=== PATIENT | female | born 1960 | race Caucasian/White ===

== ENCOUNTER 2016-08-11 17:28 | Emergency (ER) | payer OTHER ==
[~2016-08-11] VITALS: Ht 172.1 cm; Wt 69.0 kg
[~2016-08-11 17:28] MED LIST: B-COTAB18 PO; BIOT1CAP8 PO; CHOL100010 PO; ETHY1TAB6 PO; FLUO0.05 TOP; FLUORIDE TOOTHPASTE PO; GING550C PO; GLUCTAB32 PO; HYDR0.5T PO; IMD/2 PO; IRON PO; LEVO50TA6 PO; MULT-506 PO; OMEGCAP2 PO; PRT40 PO; RSTOPS OPB; SAW160TA PO; SPIR50TA2 PO; TURM1CAP4 PO; [UNRECOGNIZED DRUG - CODE] TOP
[2016-08-11 17:41] VITALS: TEMP 36.8; Ht 172.1 cm; Wt 69.0 kg
[2016-08-11] MEDS ORDERED: PROMETHAZINE HCL INJ 12.5 MG in SODIUM CHLORIDE 0.9% 50ML 50 ML IV STA (19:37)
[2016-08-11] MEDS ORDERED: SODIUM CHLORIDE 0.9% 1000ML 1,000 ML IV STA (19:37)
[2016-08-11 20:06] LABS: BASO % 0.1 %; BASO ABS # 0.02 K/uL (0-0.2); COMPLETE YES; EOS % 0.1 %; HEMATOCRIT 47.9 % (37-47); IG% 0.4 %; LYMPH % 3.6 %; LYMPH ABS # 0.49 K/uL (1.2-3.4); MEAN CORPUSCULAR HEMOGLOBIN 32.3 pg (25-34); MEAN CORPUSCULAR HGB CONC 36.3 g/dl (32-36); MEAN PLATELET VOLUME 10.6 fL (7.4-10.4); MONO % 6.4 %; NEUT % 89.4 %; PLATELET COUNT 371 K/uL (130-400); RED BLOOD COUNT 5.38 M/uL (4.2-5.4); WHITE BLOOD COUNT 13.64 K/uL (4.8-10.8)
[2016-08-11 20:29] LABS: BUN/CREATININE RATIO 15.4 (10-20); CALCIUM 8.9 mg/dl (8.5-10.1); CREATININE 1.1 mg/dl (0.60-1.20); POTASSIUM 3.4 mmol/L (3.5-5.1)
[2016-08-11 20:32] LABS: ALB/GLOB RATIO 0.9 (0.9-2)
[2016-08-11] MEDS ORDERED: PANTOprazole INJ 40 MG in SYRINGE 0 ML IV ONE (21:00)
[2016-08-11 21:07] LABS: URINE APPEARANCE CLOUDY (CLEAR); URINE COLOR DK YELLOW; URINE EPITHELIAL CELL AUTO >30 /lpf (0-5); URINE NITRITE NEG (NEG); URINE SPECIFIC GRAVITY 1.029 (1.000-1.030); UROBILINOGEN NEG (NEG); ZZUR CULT IF INDIC CLEAN CATCH YES
[2016-08-11 21:09] LABS: MANUAL MICROSCOPIC REQUIRED? NO; REVIEW REQ? YES
[2016-08-11 21:11] LABS: URINE BILIRUBIN NEG (NEG)
[2016-08-11 21:22] LABS: URINE PATH CASTS 0-3 GRANULAR CASTS /lpf (0)
[2016-08-11] MEDS ORDERED: PHENERGAN 25MG HOMEPACK PO ONE (22:15)
[2016-08-11] MEDS ORDERED: PROM12.57 PO (22:19)
--- NOTE | 2016-08-11 22:21 | EMERGENCY ROOM VISIT NOTE ---
History First contact with patient: 19:28 Chief Complaint: VOMITING Stated Complaint: VOMITING,DIARRHEA FOR 24 HOURS Nursing Triage Summary: vomting, diarrhea, abd cramps since last night around 2100 History of Present Illness The patient is a 56 year old female who presents to the Emergency Room with complaints of nausea, vomiting and diarrhea for the past one day. The patient reports that she has had 6 episodes of vomiting over the past one day. She has had multiple episodes of diarrhea. She states that she is unable to keep anything down. The patient states that she has a history of IBS and initially thought that this was causing her symptoms. However, she states this is much more severe than previous episodes of IBS. She reports some abdominal cramping. She denies any recent antibiotic use. She rates her overall discomfort a 7/10. She denies any fevers/chills, chest pain, shortness of breath, blood in her stools or urinary symptoms. Review of Systems A complete 10-point Review of Systems was discussed with the patient, with pertinent positives and negatives listed in the History of Present Illness. All remaining Review of Systems questions can be considered negative unless otherwise specified. Social History Smoking Status: Never Smoker Current/Historical Medications Scheduled B-Complex Vitamins (Vitamin B Complex), 1 TAB PO QPM Biotin (Biotin), 1 CAP PO QPM Cholecalciferol (Vitamin D), 3,000 INTER.UNIT PO QPM Cyclosporine (Restasis Eye Drops), 1 DROP OPB BID Ethynodiol Diacet & Eth Estrad (Zovia ), 1 TAB PO QPM Fluocinonide 0.05% (Lidex 0.05%), 1 APPLN TOP 2XWK Laura (Zingiber Officinalis) (Laura Root), 1 CAP PO WM Ubphqovpmxj-Grildcxbjra-Uo Cho (Glucosamine Chondroitin &), 1 TAB PO TID Hydroxychloroquine Sulfate (Plaquenil), 300 MG PO QPM Levothyroxine Sodium (Levothyroxine Sodium), 50 MCG PO QAM Loperamide Hcl (Imodium), 2 MG PO QAM Multivitamin (Multivitamin), 1 TAB PO QAM [place]-3 Fatty Acids (Fish Oil), 1,000 MG PO WM Pantoprazole (Pantoprazole Sodium), 40 MG PO QPM [place] ([place] Repens) (Saw [place]), 1 TAB PO BID Spironolactone (Aldactone), 3 TAB PO QPM Turmeric (Curcuma Longa) (Turmeric), 1 CAP PO WM [Flouride Toothpaste], 1 DOSE PO BID [Iron], 45 MG PO 2XWK Scheduled PRN Promethazine (Phenergan ), 1-2 TABS PO Q6 PRN for Nausea or Vomiting Miscellaneous Medications Minoxidil (Topical) (Minoxidil), TOP Allergies Coded Allergies: Cyclobenzaprine (Verified Allergy, Severe, OTHER, 11/21/15) CARDIAC ARRYTHMIA H2 Antagonists (Verified Allergy, Severe, OTHER, 11/21/15) CARDIAC ARRYTHMIA Metoprolol (Verified Allergy, Intermediate, SHORTNESS OF BREATH, 11/21/15) Amoxicillin (Verified Allergy, Mild, RASH, 11/21/15) Penicillins (Verified Allergy, Mild, -, 11/21/15) Sulfa Drugs (Verified Allergy, Mild, -, 11/21/15) Uncoded Allergies: SULFA (Allergy, Severe, RASH, 01/02/14) Physical Exam Vital Signs Date Time Temp Pulse Resp B/P Pulse Ox O2 Delivery O2 Flow Rate FiO2 08/11/16 23:10 107 18 102/65 100 08/11/16 23:00 107 18 102/65 100 Room Air 08/11/16 21:40 104 18 125/87 100 Room Air 08/11/16 20:03 109 18 146/92 100 Room Air 08/11/16 17:41 36.8 69 18 141/94 94 Room Air Physical Exam VITALS: Vitals are noted on the nurse's note and reviewed by myself. Vital signs stable. GENERAL: This is a 48-year-old female, in no acute distress, nondiaphoretic, well-developed well-nourished. SKIN: Capillary reflex less than 2 seconds. HEENT: Normocephalic. PERRLA. EOMI. Nares patent. Mucous membranes moist. Neck is supple without nuchal rigidity. HEART: Regular rate and rhythm without murmurs gallops or rubs. LUNGS: Clear to auscultation bilaterally without wheezes, rales or rhonchi. No retractions or accessory muscle use. ABDOMEN: Hyperactive bowel sounds in all 4 quadrants. The abdomen is soft without tenderness. NEURO: Patient was alert and oriented to person place and time. Medical Decision & Procedures Laboratory Results 08/11/16 19:50 Red Blood Count 5.38, Mean Corpuscular Volume 89.0, Mean Corpuscular Hemoglobin 32.3, Mean Corpuscular Hemoglobin Concent 36.3, Mean Platelet Volume 10.6, Neutrophils (%) (Auto) 89.4, Lymphocytes (%) (Auto) 3.6, Monocytes (%) (Auto) 6.4, Eosinophils (%) (Auto) 0.1, Basophils (%) (Auto) 0.1, Neutrophils # (Auto) 12.19, Lymphocytes # (Auto) 0.49, Monocytes # (Auto) 0.87, Eosinophils # (Auto) 0.01, Basophils # (Auto) 0.02 08/11/16 19:50 Test 08/11/16 19:50 08/11/16 20:50 White Blood Count 13.64 K/uL (4.8-10.8) Red Blood Count 5.38 M/uL (4.2-5.4) Hemoglobin 17.4 g/dL (12.0-16.0) Hematocrit 47.9 % (37-47) Mean Corpuscular Volume 89.0 fL (80-100) Mean Corpuscular Hemoglobin 32.3 pg (25-34) Mean Corpuscular Hemoglobin Concent 36.3 g/dl (32-36) Platelet Count 371 K/uL (130-400) Mean Platelet Volume 10.6 fL (7.4-10.4) Neutrophils (%) (Auto) 89.4 % Lymphocytes (%) (Auto) 3.6 % Monocytes (%) (Auto) 6.4 % Eosinophils (%) (Auto) 0.1 % Basophils (%) (Auto) 0.1 % Neutrophils # (Auto) 12.19 K/uL (1.4-6.5) Lymphocytes # (Auto) 0.49 K/uL (1.2-3.4) Monocytes # (Auto) 0.87 K/uL (0.11-0.59) Eosinophils # (Auto) 0.01 K/uL (0-0.5) Basophils # (Auto) 0.02 K/uL (0-0.2) RDW Standard Deviation 43.4 fL (36.4-46.3) RDW Coefficient of Variation 13.3 % (11.5-14.5) Immature Granulocyte % (Auto) 0.4 % Immature Granulocyte # (Auto) 0.06 K/uL (0.00-0.02) Anion Gap 13.0 mmol/L (3-11) Est Creatinine Clear Calc Drug Dose 55.7 ml/min Estimated GFR () 64.1 Estimated GFR (Non- 55.3 BUN/Creatinine Ratio 15.4 (10-20) Calcium Level 8.9 mg/dl (8.5-10.1) Total Bilirubin 0.4 mg/dl (0.2-1) Aspartate Amino Transf (AST/SGOT) 21 U/L (15-37) Alanine Aminotransferase (ALT/SGPT) 29 U/L (12-78) Alkaline Phosphatase 54 U/L (45-117) Total Protein 8.0 gm/dl (6.4-8.2) Albumin 3.7 gm/dl (3.4-5.0) Globulin 4.3 gm/dl (2.5-4.0) Albumin/Globulin Ratio 0.9 (0.9-2) Lipase 83 U/L (73-393) Urine Color DK YELLOW Urine Appearance CLOUDY (CLEAR) Urine pH 5.0 (4.5-7.5) Urine Specific Hugo 1.029 (1.000-1.030) Urine Protein 1+ (NEG) Urine Glucose (UA) NEG (NEG) Urine Ketones TRACE (NEG) Urine Occult Blood NEG (NEG) Urine Nitrite NEG (NEG) Urine Bilirubin NEG (NEG) Urine Urobilinogen NEG (NEG) Urine Leukocyte Esterase TRACE (NEG) Urine WBC (Auto) >30 /hpf (0-5) Urine RBC (Auto) 0-4 /hpf (0-4) Urine Hyaline Casts (Auto) >30 /lpf (0-5) Urine Epithelial Cells (Auto) >30 /lpf (0-5) Urine Bacteria (Auto) NEG (NEG) Urine Pathogenic Casts 0-3 GRANULAR CASTS /lpf (0) Medications Administered Medications (Trade) Dose Ordered Sig/Jono Route Start Time Stop Time Status Last Admin Dose Admin Sodium Chloride 1,000 ml @ 999 mls/hr Q1H1M STAT IV 08/11/16 19:37 08/11/16 20:37 DC 08/11/16 20:00 999 MLS/HR Promethazine HCl 12.5 mg/Sodium Chloride 50.5 ml @ 204 mls/hr NOW STAT IV 08/11/16 19:37 08/11/16 19:51 DC 08/11/16 20:00 204 MLS/HR Pantoprazole Sodium/Syringe (Protonix Inj/ Syringe) 10 ml @ 5 mls/min NOW ONCE IV 08/11/16 21:00 08/11/16 21:01 DC 08/11/16 21:36 5 MLS/MIN Promethazine HCl (Phenergan 25MG Home Pack) 1 homepack UD ONCE PO 08/11/16 22:15 08/11/16 22:16 DC 08/11/16 23:00 1 HOMEPACK Medical Decision Differential diagnosis includes gastroenteritis, colitis, cholecystitis, appendicitis, IBS, IBD, among others. The patient was evaluated as above. Labs were drawn and IV access was obtained. Imaging studies were performed and read by radiology as above. The patient was medicated with a total of 2 L normal saline solution and 12.5 mg Phenergan IV. She was then given a bolus of Protonix. The patient was reassessed multiple times during their stay in the emergency department and remained in stable condition. The patient is a 56-year-old female who presents today complaining of nausea, vomiting and diarrhea. She did complain of some abdominal cramping, but there is no significant tenderness on examination. Labs revealed a leukocytosis consistent with vomiting or mild illness. No concerning electrolyte abnormalities. Urinalysis was not suggestive of infection. The patient was hydrated and given IV Phenergan. She did have some relief, but complained of reflux symptoms and was given IV Protonix. She was reevaluated and was able to tolerate some fluids. She'll be given a home pack and prescription of Phenergan. She will follow-up with her primary care provider or will return for any worsening or concerning symptoms. Based on the patient's presentation, lab results, and imaging studies, I feel the patient is stable for outpatient treatment. The patient's case was reviewed with Dr. Rivers, ED attending physician, who agreed with my assessment and treatment plan. Discharge instructions were reviewed with the patient. The patient verbalized understanding of my assessment and treatment plan and was discharged home in good condition. Impression Primary Impression: Nausea, vomiting, and diarrhea Departure Information Dispostion Home / Self-Care Condition GOOD Prescriptions Promethazine (Phenergan ) 12.5 Mg Tab 1-2 TABS PO Q6 Y for Nausea or Vomiting, #15 TAB Prov: Nakia Jewell PA-C 08/11/16 Referrals Carlos Caceres D.O. (PCP) Patient Instructions My [facility] Additional Instructions You have been treated in the Emergency Department for your vomiting and diarrhea. You have been prescribed Phenergan to be used for any nausea or vomiting. Take as prescribed. For pain control, you can use the following [id number] medicines (if >12 yo): - Regular strength (325mg/tab) Tylenol (acetaminophen) 2 tabs every 4-6 hours as needed. Do not exceed 12 tablets in a 24 hour period. Avoid taking more than 4 grams (4000 mg) of Tylenol per day. This includes any other sources of acetaminophen you may take on a regular basis. - Regular strength (200 mg/tab) Advil (ibuprofen) 1-2 tabs every 4-6 hours as needed. Do not exceed a dose of 3200 mg per day. Drink plenty of water and stay well hydrated. As with any trip to the Emergency Department, you should follow-up with your Primary Care Provider from today's visit. Return to the emergency department if your symptoms persist despite treatment plan outlined above or if the following symptoms occur: increased fevers, chills , worsening nausea/vomiting, blood in your stool or urine.
[2016-08-11 23:10] VITALS: BP 102/65; PULSE 107; O2SAT 100
== END 2016-08-11 23:10 | disposition home or self-care (01) ==
LOC: C.EDB 17:29 → C.EDC 23:10
DX: R11.2 Nausea with vomiting, unspecified (principal); R19.7 Diarrhea, unspecified; Z79.899 Other long term (current) drug therapy; Z88.0 Allergy status to penicillin; Z88.2 Allergy status to sulfonamides; Z88.8 Allergy status to other drugs, medicaments and biological substances

== ENCOUNTER → 2017-04-02 | Outpatient (CLI) | payer OTHER | END | disposition home or self-care (01) | LOC: C.PAPS 16:53 | PROVIDERS: ATTEND Obstetrics & Gynecology | DX: Z12.4 Encounter for screening for malignant neoplasm of cervix (principal) ==

== ENCOUNTER → 2017-05-05 | Outpatient (CLI) | payer OTHER ==
--- NOTE | 2017-05-06 07:57 | MAMMOGRAPHY REPORT ---
BILATERAL DIGITAL SCREENING MAMMOGRAM TOMOSYNTHESIS WITH CAD: 05/05/2017 CLINICAL HISTORY: Routine screening. Patient has no complaints. TECHNIQUE: Breast tomosynthesis in addition to standard 2D mammography was performed. Current study was also evaluated with a Computer Aided Detection (CAD) system. COMPARISON: Comparison is made to exams dated: 04/03/2016 mammogram, 02/26/2015 mammogram, 02/23/2014 m ammogram, 02/14/2013 mammogram, 03/02/2012 aspiration, and 02/20/2012 mammogram - [facility] enter. BREAST COMPOSITION: There are scattered areas of fibroglandular density in both breasts. FINDINGS: There is stable asymmetries in the lateral right breast. No suspicious spiculated or irreg ular mass, architectural distortion or cluster of suspicious microcalcifications is seen. IMPRESSION: ACR BI-RADS CATEGORY 1: NEGATIVE There is no mammographic evidence of malignancy. A 1 year screening mammogram is recommended. The pa tient will receive written notification of the results. Approximately 10% of breast cancers are not detected with mammography. A negative mammographic report should not delay biopsy if a clinically suggestive mass is present. Libby Goodrich M.D. ay/:05/05/2017 15:51:11 Numerical Control Operator: Kimmy MAURICIO(R)([place]), [facility] letter sent: Normal 1/2 BI-RADS Code: ACR BI-RADS Category 1: Negative
== END | disposition home or self-care (01) ==
LOC: C.MAMM 12:24
PROVIDERS: ATTEND Obstetrics & Gynecology
DX: Z12.31 Encounter for screening mammogram for malignant neoplasm of breast (principal)

== ENCOUNTER → 2017-05-29 | Outpatient (CLI) | payer OTHER ==
--- NOTE | 2017-05-29 09:41 | DIAGNOSTIC IMAGING REPORT ---
R FOOT MIN 3 VIEWS, L FOOT MIN 3 VIEWS CLINICAL HISTORY: 57 years-old Female presenting with B/L FOOT PAIN. TECHNIQUE: Frontal, oblique, and lateral views of the right and left feet were obtained. COMPARISON: None. FINDINGS: Right foot: No acute fracture or malalignment. Prominent bone spur at the inferior calcaneus. No other advanced degenerative change. No radiographic soft tissue abnormality. Left foot: No acute fracture or malalignment. Slightly less prominent bone spur at the inferior calcaneus. No other advanced degenerative change. No radiographic soft tissue abnormality. IMPRESSION: 1. No acute osseous injury of the right or left feet. 2. Bilateral enthesophytes at the origin of the plantar fascia, right greater than left. Electronically signed by: Nilton Aguilar M.D. 05/29/2017 9:40 AM Dictated Date/Time: 05/29/2017 9:38 AM
== END | disposition home or self-care (01) ==
LOC: C.RDSM 12:09
PROVIDERS: ATTEND Internal Medicine
DX: M79.671 Pain in right foot (principal); M79.672 Pain in left foot; M77.31 Calcaneal spur, right foot; M77.32 Calcaneal spur, left foot

== ENCOUNTER 2017-09-11 07:11 | Emergency (ER) | payer OTHER ==
[~2017-09-11] VITALS: Ht 170.2 cm; Wt 72.5 kg
[2017-09-11 07:12] VITALS: TEMP 36.8; Ht 170.2 cm; Wt 72.5 kg
[2017-09-11] MEDS ORDERED: SODIUM CHLORIDE 0.9% 1000ML 1,000 ML IV STA (07:35)
[2017-09-11 07:59] LABS: PTT PATIENT 25.4 SECONDS (21.0-31.0)
[2017-09-11 08:04] LABS: ALBUMIN 3.7 gm/dl (3.4-5.0); ALT/SGPT 34 U/L (12-78); BLOOD UREA NITROGEN 14 mg/dl (7-18); CALCIUM 9.5 mg/dl (8.5-10.1); CARBON DIOXIDE 27 mmol/L (21-32); CREATININE 0.96 mg/dl (0.60-1.20); GLUCOSE 95 mg/dl (70-99); POTASSIUM 3.7 mmol/L (3.5-5.1); SODIUM 138 mmol/L (136-145)
[2017-09-11] MEDS ORDERED: PRT/20 PO (08:07)
[2017-09-11] MEDS ORDERED: LDXCR30 TOP (08:07)
[2017-09-11] MEDS ORDERED: CHOL1TAB12 PO (08:07)
[2017-09-11] MEDS ORDERED: HYDR200T5 PO (08:07)
[2017-09-11] MEDS ORDERED: CYCL0.052 OP (08:07)
[2017-09-11 08:14] VITALS: O2SAT 96
[2017-09-11 08:15] LABS: ALKALINE PHOSPHATASE 51 U/L (45-117); AST/SGOT 22 U/L (15-37); CKMB 0.7 ng/ml (0.5-3.6); TOTAL PROTEIN 7.5 gm/dl (6.4-8.2)
[2017-09-11 08:19] LABS: BASO % 0.4 %; BASO ABS # 0.04 K/uL (0-0.2); HEMATOCRIT 43.1 % (37-47); HEMOGLOBIN 15.1 g/dL (12.0-16.0); IG# 0.05 K/uL (0.00-0.02); LYMPH % 31.9 %; LYMPH ABS # 3.26 K/uL (1.2-3.4); MEAN CELL VOLUME 89.8 fL (80-100); MEAN CORPUSCULAR HEMOGLOBIN 31.5 pg (25-34); MEAN PLATELET VOLUME 10.6 fL (7.4-10.4); MONO % 10.6 %; MONO ABS # 1.08 K/uL (0.11-0.59); NEUT % 54.6 %; NEUT ABS # 5.58 K/uL (1.4-6.5); PLATELET COUNT 353 K/uL (130-400); RED CELL DISTRIBUTION WIDTH CV 12.6 % (11.5-14.5); RED CELL DISTRIBUTION WIDTH SD 41.5 fL (36.4-46.3); WHITE BLOOD COUNT 10.21 K/uL (4.8-10.8)
--- NOTE | 2017-09-11 08:25 | DIAGNOSTIC IMAGING REPORT ---
CHEST ONE VIEW PORTABLE CLINICAL HISTORY: EVALUATE WEAKNESS mental status change COMPARISON STUDY: 08/18/2012 FINDINGS: The bones soft tissues and hemidiaphragms are normal. The cardiomediastinal silhouette is normal. The lungs are clear. The pulmonary vasculature is normal. IMPRESSION: Negative chest. The above report was generated using voice recognition software. It may contain grammatical, syntax or spelling errors. Electronically signed by: Jerry Moran M.D. 09/11/2017 8:23 AM Dictated Date/Time: 09/11/2017 8:23 AM
--- NOTE | 2017-09-11 08:57 | EMERGENCY ROOM VISIT NOTE ---
History Report prepared by Kristel: Brittany Parnell Under the Supervision of: Dr. Juan Manuel Garrett M.D. First contact with patient: 07:32 Chief Complaint: IRREGULAR HEARTBEAT Stated Complaint: IRREGULAR HEART BEAT Nursing Triage Summary: Pt felt like popcorn was popping in her chest. Has a history of bigeminy. Denies CP. [place] like she couldnt catch her breath. History of Present Illness The patient is a 57 year old female who presents to the Emergency Room with complaints of intermittent irregular heartbeat starting a couple weeks ago. This occurs mostly at night when she is trying to sleep. She had the irregular heartbeat from 0948-1299 today. This episode was much worse than her previous episodes. She describes the rhythm as popcorn popping in her chest. She has felt lightheaded at times. The patient has a history of PVC and bigeminy. Her heartbeat last night felt different from her previous rhythm problems. She currently feels that she is having PVCs which is normal for her. Pt denies LOC, headache, fevers, chills, diaphoresis, visual changes, neck pain, chest pain, breathing difficulties, nausea, vomiting, abdominal pain, back pain, melena, hematochezia, urinary symptoms, numbness, weakness, lymphadenopathy, rash, or other complaints. Source of History: patient Onset: couple weeks ago Position: other (global) Quality: other (irregular heartbeat) Timing: intermittent Note: Pt reports lightheadedness. Review of Systems See HPI for pertinent positives and negatives. A total of ten systems were reviewed and were otherwise negative. Past Medical & Surgical Medical Problems: (1) GERD (gastroesophageal reflux disease) (2) IBS (irritable bowel syndrome) Family History Diabetes mellitus Heart disease Hypertension Lung disease Social History Smoking Status: Never Smoker Marital Status: Current/Historical Medications Scheduled B-Complex Vitamins (Vitamin B Complex), 1 TAB PO QPM Biotin (Biotin), 1 CAP PO QPM Cholecalciferol (Vitamin D3), 3,000 INTER.UNIT PO DAILY Cyclosporine (Ophth) (Restasis), 1 DROP OP BID Ethynodiol Diacet & Eth Estrad (Zovia ), 1 TAB PO QPM Fluocinonide (Lidex 0.05% Cream), 1 APPLN TOP WK Laura (Zingiber Officinalis) (Laura Root), 1 CAP PO WM Aejmararzxn-Lvcsstjsgds-Cn Cho (Glucosamine Chondroitin &), 1 TAB PO TID Hydroxychloroquine Sulfate (Plaquenil), 300 MG PO DAILY Levothyroxine Sodium (Levothyroxine Sodium), 50 MCG PO QAM Loperamide Hcl (Imodium), 2 MG PO QAM Multivitamin (Multivitamin), 1 TAB PO QAM Ellerbe-3 Fatty Acids (Fish Oil), 1,000 MG PO WM Pantoprazole (Protonix), 20 MG PO DAILY Saw Linden (Serenoa Repens) (Saw Linden), 1 TAB PO BID Spironolactone (Aldactone), 3 TAB PO QPM Turmeric (Curcuma Longa) (Turmeric), 1 CAP PO WM Allergies Coded Allergies: Cyclobenzaprine (Verified Allergy, Severe, OTHER, 09/11/17) CARDIAC ARRYTHMIA H2 Antagonists (Verified Allergy, Severe, OTHER, 09/11/17) CARDIAC ARRYTHMIA Metoprolol (Verified Allergy, Intermediate, SHORTNESS OF BREATH, 09/11/17) Amoxicillin (Verified Allergy, Mild, RASH, 09/11/17) Penicillins (Verified Allergy, Mild, -, 09/11/17) Sulfa Drugs (Verified Allergy, Mild, -, 09/11/17) Uncoded Allergies: SULFA (Allergy, Severe, RASH, 01/02/14) Physical Exam Vital Signs Date Time Temp Pulse Resp B/P (MAP) Pulse Ox O2 Delivery O2 Flow Rate FiO2 09/11/17 10:43 108 17 135/83 100 09/11/17 10:31 108 17 135/83 100 Room Air 09/11/17 09:11 91 147/79 100 09/11/17 08:14 96 Room Air 09/11/17 08:10 94 Room Air 09/11/17 08:10 80 17 154/83 99 Room Air 09/11/17 07:50 96 09/11/17 07:12 36.8 91 18 177/101 98 Room Air Physical Exam GENERAL: Awake, alert, well-appearing, in no distress HENT: Normocephalic, atraumatic. Oropharynx unremarkable. EYES: Normal conjunctiva. Sclera non-icteric. NECK: Supple. No nuchal rigidity. FROM. No masses. RESPIRATORY: Clear to auscultation. No wheezes. CARDIAC: Normal rate. Normal rhythm. No murmurs. No rubs. Extremities warm and well perfused. Pulses equal. No JVD. GI: Soft, non-distended. No tenderness to palpation. No rebound or guarding. No masses. RECTAL: Deferred. MUSCULOSKELETAL: Atraumatic. Chest examination reveals no tenderness. The back is symmetrical on inspection without obvious abnormality. There is no CVA tenderness to palpation. No joint edema. LOWER EXTREMITIES: Calves are equal size bilaterally and non-tender. No edema. No discoloration. NEURO: Normal sensorium. No sensory or motor deficits noted. SKIN: No rash or jaundice noted. Medical Decision & Procedures ER Provider Diagnostic Interpretation: Radiology results as stated below per my review and radiologist interpretation: CHEST ONE VIEW PORTABLE CLINICAL HISTORY: EVALUATE WEAKNESS mental status change COMPARISON STUDY: 08/18/2012 FINDINGS: The bones soft tissues and hemidiaphragms are normal. The cardiomediastinal silhouette is normal. The lungs are clear. The pulmonary vasculature is normal. IMPRESSION: Negative chest. The above report was generated using voice recognition software. It may contain grammatical, syntax or spelling errors. Electronically signed by: Jerry Moran M.D. 09/11/2017 8:23 AM Dictated Date/Time: 09/11/2017 8:23 AM Laboratory Results 09/11/17 07:25 Red Blood Count 4.80, Mean Corpuscular Volume 89.8, Mean Corpuscular Hemoglobin 31.5, Mean Corpuscular Hemoglobin Concent 35.0, Mean Platelet Volume 10.6, Neutrophils (%) (Auto) 54.6, Lymphocytes (%) (Auto) 31.9, Monocytes (%) (Auto) 10.6, Eosinophils (%) (Auto) 2.0, Basophils (%) (Auto) 0.4, Neutrophils # (Auto ) 5.58, Lymphocytes # (Auto) 3.26, Monocytes # (Auto) 1.08, Eosinophils # (Auto ) 0.20, Basophils # (Auto) 0.04 09/11/17 07:25 Test 09/11/17 07:25 09/11/17 09:00 White Blood Count 10.21 K/uL (4.8-10.8) Red Blood Count 4.80 M/uL (4.2-5.4) Hemoglobin 15.1 g/dL (12.0-16.0) Hematocrit 43.1 % (37-47) Mean Corpuscular Volume 89.8 fL (80-100) Mean Corpuscular Hemoglobin 31.5 pg (25-34) Mean Corpuscular Hemoglobin Concent 35.0 g/dl (32-36) Platelet Count 353 K/uL (130-400) Mean Platelet Volume 10.6 fL (7.4-10.4) Neutrophils (%) (Auto) 54.6 % Lymphocytes (%) (Auto) 31.9 % Monocytes (%) (Auto) 10.6 % Eosinophils (%) (Auto) 2.0 % Basophils (%) (Auto) 0.4 % Neutrophils # (Auto) 5.58 K/uL (1.4-6.5) Lymphocytes # (Auto) 3.26 K/uL (1.2-3.4) Monocytes # (Auto) 1.08 K/uL (0.11-0.59) Eosinophils # (Auto) 0.20 K/uL (0-0.5) Basophils # (Auto) 0.04 K/uL (0-0.2) RDW Standard Deviation 41.5 fL (36.4-46.3) RDW Coefficient of Variation 12.6 % (11.5-14.5) Immature Granulocyte % (Auto) 0.5 % Immature Granulocyte # (Auto) 0.05 K/uL (0.00-0.02) Prothrombin Time 10.1 SECONDS (9.0-12.0) Prothromb Time International Ratio 1.0 (0.9-1.1) Activated Partial Thromboplast Time 25.4 SECONDS (21.0-31.0) Partial Thromboplastin Ratio 1.0 Anion Gap 8.0 mmol/L (3-11) Est Creatinine Clear Calc Drug Dose 61.4 ml/min Estimated GFR () 75.0 Estimated GFR (Non- 64.7 BUN/Creatinine Ratio 14.8 (10-20) Calcium Level 9.5 mg/dl (8.5-10.1) Magnesium Level 2.1 mg/dl (1.8-2.4) Total Bilirubin 0.3 mg/dl (0.2-1) Direct Bilirubin < 0.1 mg/dl (0-0.2) Aspartate Amino Transf (AST/SGOT) 22 U/L (15-37) Alanine Aminotransferase (ALT/SGPT) 34 U/L (12-78) Alkaline Phosphatase 51 U/L (45-117) Total Creatine Kinase 61 U/L (26-192) Creatine Kinase MB 0.7 ng/ml (0.5-3.6) Creatine Kinase MB Ratio 1.1 (0-3.0) Troponin I < 0.015 ng/ml (0-0.045) Total Protein 7.5 gm/dl (6.4-8.2) Albumin 3.7 gm/dl (3.4-5.0) Thyroid Stimulating Hormone (TSH) 5.300 uIu/ml (0.300-4.500) Urine Color YELLOW Urine Appearance CLOUDY (CLEAR) Urine pH 6.5 (4.5-7.5) Urine Specific [place] 1.014 (1.000-1.030) Urine Protein NEG (NEG) Urine Glucose (UA) NEG (NEG) Urine Ketones NEG (NEG) Urine Occult Blood TRACE (NEG) Urine Nitrite NEG (NEG) Urine Bilirubin NEG (NEG) Urine Urobilinogen NEG (NEG) Urine Leukocyte Esterase MODERATE (NEG) Urine WBC (Auto) 10-30 /hpf (0-5) Urine RBC (Auto) 0-4 /hpf (0-4) Urine Hyaline Casts (Auto) 0 /lpf (0-5) Urine Epithelial Cells (Auto) 20-30 /lpf (0-5) Urine Bacteria (Auto) NEG (NEG) Laboratory results reviewed by me Medications Administered Medications (Trade) Dose Ordered Sig/Jono Route Start Time Stop Time Status Last Admin Dose Admin Sodium Chloride 1,000 ml @ 125 mls/hr Q8H STAT IV 09/11/17 07:35 09/11/17 11:12 DC 09/11/17 07:52 125 MLS/HR ECG Per My Interpretation Indication: palpitations Rate (beats per minute): 102 Rhythm: sinus tachycardia Findings: PVC (frequent), no acute ischemic change, other (normal intervals) ED Course 0735: NSS 1000 ml @ 125 mls/hr IV. 0740: The patient was evaluated in room A3. A complete history and physical exam was performed. 1008: I discussed the patient's case with Dr. Rubalcava [facility]. He will follow up for monitoring. 1026: I reevaluated the patient. She is feeling great. I discussed results and discharge instructions: she verbalized understanding and agreement. The patient is ready for discharge. Medical Decision Prior records/ancillary studies reviewed. Triage Nursing notes reviewed and agree them. Additional history obtained from the family. The patient's history was concerning for palpitations. Differential diagnosis: Etiologies such as electrolyte abnormality, cardiac dysrhythmia, thyroid dysfunction, pulmonary embolism, infection, gastrointestinal, as well as others were entertained. Physical examination: Benign as above. ER treatment provided: Cardiac monitoring. No medication given On reassessment the patient felt better. Diagnostic interpretation by me: The electrocardiogram was negative for pathologic change. PVCs noted. The labs revealed an unremarkable CBC and chemistry panel. Her markers negative. TSH negative. Imaging studies: Chest x-ray as above. Consultation: Consultation was made with velma valenzuela, Dr. Rubalcava. The case was discussed and diagnostics were reviewed. He agreed that the patient will need an outpatient monitor. The office will arrange this. If the patient has any worsening symptoms she was advised to come back to the emergency department for reevaluation. The patient felt comfortable with this plan. By the evaluation outlined above other emergent etiologies such as those listed in the differential, as well as others, were deemed relatively unlikely. The patient was educated about the findings as listed above. All questions were answered and the patient was pleased with the treatment. Return instructions were outlined and the patient was discharged in stable condition. The patient was referred to cardiology for follow-up for a recheck of the current condition. Medication Reconcilliation Current Medication List: was personally reviewed by me Blood Pressure Screening Patient's blood pressure: Elevated blood pressure Referred to cardiology. Consults Time Called: 1004 Consulting Physician: Dr. Rubalcava [facility] Returned Call: [phone] I discussed the patient's case with him. He will follow up for monitoring. Impression Primary Impression: Palpitations Additional Impression: PVCs (premature ventricular contractions) Scribe Attestation The scribe's documentation has been prepared under my direction and personally reviewed by me in its entirety. I confirm that the note above accurately reflects all work, treatment, procedures, and medical decision making performed by me. Departure Information Dispostion Home / Self-Care Referrals Carlos Caceres D.O. (PCP) Ramirez Abreu M.D. Forms HOME CARE DOCUMENTATION FORM, IMPORTANT VISIT INFORMATION Patient Instructions My [facility] [employer] Additional Instructions PALPITATIONS(RAPID OR SKIPPING HEARTBEAT) INSTRUCTIONS: Rest and drink plenty of fluids as tolerated. Continue current medications. Resume normal activities once your symptoms resolve. Eat a heart healthy, low fat, low cholesterol diet. Return to the ER immediately for passing out, chest pain, abdominal pain, vomiting, fevers, difficulty breathing, worsening of your condition, or as needed. 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 If you do not hear from them by Thursday at noon call for further instruction. Problem Qualifiers
[2017-09-11 10:43] VITALS: BP 135/83; PULSE 108; O2SAT 100
== END 2017-09-11 10:48 | disposition home or self-care (01) ==
LOC: C.EDB 07:12 → C.EDA 10:48
DX: R00.2 Palpitations (principal); I49.3 Ventricular premature depolarization; K21.9 Gastro-esophageal reflux disease without esophagitis; K58.9 Irritable bowel syndrome, unspecified; Z83.3 Family history of diabetes mellitus; Z82.49 Family history of ischemic heart disease and other diseases of the circulatory system; Z83.6 Family history of other diseases of the respiratory system; Z79.899 Other long term (current) drug therapy; Z88.1 Allergy status to other antibiotic agents; Z88.0 Allergy status to penicillin; Z88.2 Allergy status to sulfonamides; Z88.8 Allergy status to other drugs, medicaments and biological substances

== ENCOUNTER → 2017-10-08 | Outpatient (CLI) | payer OTHER ==
[~2017-10-08] MED LIST changes: -CHOL100010 PO; +CHOL1TAB12 PO; +CYCL0.052 OP; -FLUO0.05 TOP; -FLUORIDE TOOTHPASTE PO; -HYDR0.5T PO; +HYDR200T5 PO; -IRON PO; +LDXCR30 TOP; +PRT/20 PO; -PRT40 PO; -RSTOPS OPB; -[UNRECOGNIZED DRUG - CODE] TOP
== END | disposition home or self-care (01) ==
LOC: C.LAB1850 11:49
PROVIDERS: ATTEND Registered Nurse
DX: K21.9 Gastro-esophageal reflux disease without esophagitis (principal)